=== PATIENT | female | born 1950 | race Caucasian/White ===

== ENCOUNTER → 2016-06-08 | Day surgery (SDC) | payer OTHER ==
[2016-05-31 15:39] VITALS: BMI 45.0
[~2016-06-08] VITALS: Ht 162.6 cm; Wt 119.1 kg
[~2016-06-08] MED LIST: ASPCH81X PO; ATOR-22 PO; CALC600T9 PO; CHOL2000 PO; CLON0.3T PO; FENTANYL CITRATE INJ 50 MCG/1 ML 2 ML VIAL ONE; FRS/40 PO; HYDR25TA5 PO; ISR20 PO; LEVO175T PO; LIDOCAINE HCL 2% 2 ML VIAL (20MG/ML) ONE; LISI40TA PO; METO1TAB66 PO; MIDAZOLAM HCL 1 MG/ML 2ML VIAL ONE; OMEP20CA9 PO; OXYC-643 PO; PLQ200 PO; POTA20TA16 PO; PROPOFOL IV EMULSION 10 MG/ML 20 ML VIAL IV ONE; PYRI100T4 PO; SODIUM CHLORIDE 0.9% 500ML 500 ML IV ONE; SYMIN/8045 INH
[2016-06-08 08:30] VITALS: Ht 162.6 cm; Wt 119.1 kg
--- NOTE | 2016-06-08 09:06 | Endo History and Physical ---
History & Physical Date of Service: Jun 08, 2016. Chief Complaint: hx polyp Referring Physician: Timoteo History of Present Illness 65 yo presenting for f/u for history of polyps Past Medical History Gastrointestinal Disorder, Reflux, High Cholesterol, Sleep Apnea, Hypertension, Thyroid Disease, Kidney Disease Past Surgical History Hx Cardiac Surgery: No Hx Internal Defibrillator: No Hx Pacemaker: No Hx Abdominal Surgery: Yes (, ADHESION REMOVALS) Hx of Implantable Prosthesis: No Hx Post-Op Nausea and Vomiting: No Hx Cancer Surgery: No Hx Thoracic Surgery: No Hx Orthopedic: No Hx Urinary Tract Surgery: Yes (LITHOTRIPSY) Family History None Social History Smoking Status: Current Every Day Smoker Hx Substance Use: Yes (SEE MED REC) Hx Alcohol Use: No Allergies Coded Allergies: Sulfa Antibiotics (Verified Allergy, Unknown, RASH, 06/08/16) Current Medications Reported Home Medications Medications Dose Route/Sig Max Daily Dose Days Date Category Vitamin B6 (Pyridoxine HCl) 100 Mg Tab 100 Mg PO QAM 05/31/16 Reported Klor-Con (Potassium Chloride) 20 Meq Tabcr 20 Meq PO BID 05/31/16 Reported Vitamin D3 (Cholecalciferol) 2,000 Unit Cap 1 Cap PO QAM 05/31/16 Reported Lipitor (Atorvastatin Calcium) 20 Mg Tab 20 Mg PO QAM 05/31/16 Reported Aspirin Chewable (Aspirin) 81 Mg Chew 81 Mg PO QAM 05/27/15 Reported Oxycodone/Acetaminophen 5MG/325MG (Oxycodone/Acetaminophen) 1 Tab Tab 1 Tablet PO Q4H PRN 05/27/15 Reported Calcium + D (Calcium Carbonate-Vitamin D) 1 Tab Tab 1 Tab PO QAM 05/27/15 Reported Hydroxychloroquine Sulfat (Hydroxychloroquine Sulfate) 200 Mg Tab 1 Tab PO HS 05/27/15 Reported Prilosec (Omeprazole) 20 Mg Cap 20 Mg PO BID 05/27/15 Reported Lasix (Furosemide) 40 Mg Tab 1.5 Tab PO BID 05/27/15 Reported Synthroid (Levothyroxine Sodium) 175 Mcg Tab 175 Mcg PO QAM 05/27/15 Reported Symbicort 80/4.5 Inhaler (Budesonide/Formoterol Fumarate) 120 Puffs/ Aero 2 Puffs INH BID PRN 05/27/15 Reported Zestril (Lisinopril) 40 Mg Tab 40 Mg PO QAM 05/27/15 Reported Toprol Xl (Metoprolol Succinate) 50 Mg Tab 50 Mg PO QAM 05/27/15 Reported Hydrochlorothiazide 25 Mg Tab 1.5 Tabs PO TID 05/27/15 Reported Isordil (Isosorbide Dinitrate) 20 Mg Tab 20 Mg PO TID 05/27/15 Reported Catapres (Clonidine Hcl) 0.3 Mg Tab 0.3 Mg PO TID 05/27/15 Reported Vital Signs Weight (Kilograms): 119.09 Height (Feet): 5 Height (Inches): 4 Date Time Temp Pulse Resp B/P Pulse Ox O2 Delivery O2 Flow Rate FiO2 06/08/16 08:30 36.3 71 205/98 96 Room Air 221/93 Physical Exam General Appearance: WD/WN, no apparent distress Respiratory/Chest: Respiratory effort: no dyspnea Auscultation: breath sounds normal, CTA except as noted Cardiovascular: Apical Impulse: not displaced Heart Auscultation: RRR, normal S1, normal S2 Abdomen: Inspection & Palpation: soft, non-distended, no tenderness, guarding & rebound Assessment and Plan 65 yo presenting for f/u of colon polyps
--- NOTE | 2016-06-08 09:32 | GI REPORT ---
Procedure Date: 06/08/2016 9:11 AM Procedure: Colonoscopy Indications: High risk colon cancer surveillance: Personal history of colonic polyps Medicines: General Anesthesia Complications: No immediate complications. Estimated blood loss: None. Estimated Blood Loss: Estimated blood loss: none. Procedure: Pre-Anesthesia Assessment: - Pre-Anesthesia Assessment: - Prior to the procedure, a History and Physical was performed, and patient medications, allergies and sensitivities were reviewed. The patient's tolerance of previous anesthesia was reviewed. Please see [employer] for complete details. - The risks and benefits of the procedure and the sedation options and risks were discussed with the patient. All questions were answered and informed consent was obtained. - Patient identification and proposed procedure were verified prior to the procedure by the physician and the nurse. The procedure was verified in the pre-procedure area in the procedure room. After obtaining informed consent, the endoscope was passed carefully and meticuously under direct vision and only advanced when the lumen was clearly identified, C02 insuflation was utilized throughout the entirity of the procedure. Throughout the procedure, the patient's blood pressure, pulse, and oxygen saturations were monitored continuously. After I obtained informed consent, the scope was passed under direct vision. Throughout the procedure, the patient's blood pressure, pulse, and oxygen saturations were monitored continuously. The scope was introduced through the anus and advanced to the terminal ileum, with identification of the appendiceal orifice and IC valve. The colonoscopy was performed without difficulty. The patient tolerated the procedure well. The quality of the bowel preparation was fair. Findings: A 3 mm polyp was found in the transverse colon. The polyp was sessile. The polyp was removed with a cold snare. Resection and retrieval were complete. Multiple small-mouthed diverticula were found in the sigmoid colon. Internal hemorrhoids were found during retroflexion. The terminal ileum appeared normal. The exam was otherwise without abnormality on direct and retroflexion views. Impression: - One 3 mm polyp in the transverse colon, removed with a cold snare. Resected and retrieved. - Diverticulosis. - Internal hemorrhoids. - The examined portion of the ileum was normal. - The examination was otherwise normal on direct and retroflexion views. Recommendation: - Discharge patient to home (with escort). - Repeat colonoscopy in 5 years for surveillance. - Return to referring physician as previously scheduled. Francesco Dos Santos MD 06/08/2016 9:32:04 AM This report has been signed electronically. Note Initiated On: 06/08/2016 9:11 AM
--- NOTE | 2016-06-08 09:32 | Discharge Instructions ---
Endoscopy Patient Instructions Date / Procedure(s) Performed Jun 08, 2016. Colonoscopy Allergy Information Coded Allergies: Sulfa Antibiotics (Verified Allergy, Unknown, RASH, 06/08/16) Discharge Date / Findings Jun 08, 2016. one small polyp-removed internal hemorrhoids small diverticuli Medication Instructions Stopped Medication(s): asa blood thinners Provider Instructions Activity Restrictions - No exercising or heavy lifting for 24 hours. - Do not drink alcohol the day of the procedure. - Do not drive a car or operate machinery until the day after the procedure. - Do not make any important decisions or sign important papers in 24 hours after the procedure. Following Day: - Return to full activity which may include returning to work/school. Diet Start your diet with liquids and light foods (jello, soup, juice, toast). Then eat your usual diet if not nauseated. Treatment For Common After Affects For mild abdominal pain, bloating, or excessive gas: - Rest - Eat lightly - Lie on right side Follow-Up Information Follow-up with Timoteo as scheduled Anesthesia Information What You Should Know You have had a procedure that required some medicine to reduce anxiety and discomfort. This treatment is called moderate sedation. After receiving the treatment, you may be sleepy, but you will be able to breathe on your own. The effects of the treatment may last for several hours. Follow these instructions along with Activity/Diet recommendations noted above: * Do NOT do anything where dizziness or clumsiness would be dangerous. * Rest quietly at home today, then you can be up and about tomorrow. * Have a responsible person stay with you the rest of today. * You may have had an I.V. today. If so, you may take the dressing off later today. Recommendations Call your doctor if: * Trouble breathing * Continuous vomiting for more than 24 hours * Temperature above 101 degrees * Severe abdominal pain or bloating * Pain not relieved by pain medicine ordered * There is increased drainage or redness from any incision * A large amount of rectal bleeding greater than 2-3 tablespoons. (If you had a polyp/s removed or have hemorrhoids, a small amount of blood - from the rectum is to be expected.) * You have any unanswered questions or concerns. IN THE EVENT OF A SERIOUS EMERGENCY, GO TO THE NEAREST EMERGENCY ROOM Your discharge instructions were prepared by provider Francesco Dos Santos. Patient Instructions Signature Page Alka Malik Patient (or Guardian) Signature/Date: I have read and understand the instructions given to me by my caregivers. Caregiver/RN/Doctor Signature/Date: The above-named patient and/or guardian has received patient instructions on this date. + Original Patient Signature Page (only) stays with chart. Please make copy for patient.
--- NOTE | 2016-06-08 09:52 | Anesthesiology Progress Note ---
Anesthesia Post Op Note Date & Time Jun 08, 2016 at 09:53 Vital Signs Pain Intensity: 0 Vital Signs Past 12 Hours Date Time Temp Pulse Resp B/P Pulse Ox O2 Delivery O2 Flow Rate FiO2 06/08/16 09:50 60 20 177/80 96 Room Air 06/08/16 09:35 64 22 172/79 96 Room Air 06/08/16 08:30 36.3 71 205/98 96 Room Air 221/93 Notes Mental Status: alert / awake / arousable, participated in evaluation Pt Amnestic to Procedure: Yes Nausea / Vomiting: adequately controlled Pain: adequately controlled Airway Patency, RR, SpO2: stable & adequate BP & HR: stable & adequate Hydration State: stable & adequate Anesthetic Complications: no major complications apparent
[2016-06-08 10:05] VITALS: BP 205/91; PULSE 60; O2SAT 96
== END | disposition home or self-care (01) ==
LOC: C.GI 08:21
PROVIDERS: ATTEND Internal Medicine
DX: Z12.11 Encounter for screening for malignant neoplasm of colon (principal); Z86.010 Personal history of colon polyps; D12.3 Benign neoplasm of transverse colon; K57.32 Diverticulitis of large intestine without perforation or abscess without bleeding; J44.9 Chronic obstructive pulmonary disease, unspecified; E78.00 Pure hypercholesterolemia, unspecified; I10 Essential (primary) hypertension; K21.9 Gastro-esophageal reflux disease without esophagitis; G47.33 Obstructive sleep apnea (adult) (pediatric); Z88.2 Allergy status to sulfonamides; Z98.890 Other specified postprocedural states; F17.200 Nicotine dependence, unspecified, uncomplicated; E66.9 Obesity, unspecified; Z68.42 Body mass index [BMI] 45.0-49.9, adult